=== PATIENT | female | born 1950 | race Caucasian/White ===

== ENCOUNTER → 2023-08-11 | Outpatient (CLI) | payer MEDICARE, OTHER | LOC: MC.RAD 10:07 | DX: Z12.31 Encounter for screening mammogram for malignant neoplasm of breast (principal); N64.89 Other specified disorders of breast ==

== ENCOUNTER → 2023-08-19 | Outpatient (CLI) | payer MEDICARE | LOC: MC.RAD 09:46 | DX: N60.02 Solitary cyst of left breast (principal); N64.89 Other specified disorders of breast ==